=== PATIENT | female | born 1950 | race Caucasian/White ===

== ENCOUNTER → 2016-10-26 | Outpatient (CLI) | payer OTHER ==
[~2016-10-26] MED LIST: BENZ100 PO; BUPR-197 PO; SYNT88TA PO; XARE10TA PO; [UNRECOGNIZED DRUG - CODE] OR
[2016-10-26 10:11] LABS: AUTOMATED NEUTROPHIL # 2.2 TH/MM3 (1.8-7.7); BASOPHIL % 0.7 % (0.0-2.0); EOSINOPHIL # 0.2 TH/MM3 (0-0.4); EOSINOPHIL % 2.9 % (0.0-4.0); HEMATOCRIT 43.4 % (35.0-46.0); HEMO FLAGS DIFF FINAL; LYMPH % 46.4 % (9.0-44.0); LYMPHOCYTE # 2.5 TH/MM3 (1.0-4.8); MEAN CELL VOLUME 91.5 FL (80.0-100.0); MEAN CORPUSCULAR HEMOGLOBIN 31.7 PG (27.0-34.0); MEAN CORPUSCULAR HGB CONC 34.7 % (32.0-36.0); MONO % 9.1 % (0.0-8.0); NEUT % 40.9 % (16.0-70.0); PLATELET COUNT 158 TH/MM3 (150-450); RED BLOOD COUNT 4.75 MIL/MM3 (4.00-5.30); RED CELL DISTRIBUTION WIDTH 14.1 % (11.6-17.2); WHITE BLOOD COUNT 5.3 TH/MM3 (4.0-11.0)
[2016-10-26 11:38] LABS: ALKALINE PHOSPHATASE 81 U/L (45-117); ALT (GPT) 37 U/L (10-53); ANION GAP 6 MEQ/L (5-15); AST (GOT) 19 U/L (15-37); BICARBONATE 26.7 MEQ/L (21.0-32.0); BLOOD UREA NITROGEN 15 MG/DL (7-18); CHLORIDE 107 MEQ/L (98-107); GLOMERULAR FILTRATION RATE 66 ML/MIN (>89); GLUCOSE,FASTING 113 MG/DL (74-99); HDL CHOLESTEROL 35.5 MG/DL (40.0-60.0); LDL CHOLESTEROL 105 MG/DL (0-99); POTASSIUM 4.3 MEQ/L (3.5-5.1); SODIUM (NA) 140 MEQ/L (136-145); TOTAL BILIRUBIN ADULT 0.3 MG/DL (0.2-1.0)
== END ==
LOC: CLAB 09:44
PROVIDERS: ATTEND Family Medicine
DX: E03.9 Hypothyroidism, unspecified (principal); I82.4Z1 Acute embolism and thrombosis of unspecified deep veins of right distal lower extremity; J98.8 Other specified respiratory disorders; K13.79 Other lesions of oral mucosa; M25.559 Pain in unspecified hip; R05 Cough; R53.83 Other fatigue
CPT/HCPCS: 36415; 80053; 80061; 84443; 85025

== ENCOUNTER 2017-08-14 04:39 | Observation (INO) | payer OTHER ==
[2017-08-14] VITALS (7 sets, daily range): BP systolic 125–170; BP diastolic 64–82; PULSE 71–101; RESP 15–18; TEMP 97.8–98.5; O2SAT 95–98
[~2017-08-14] VITALS: Ht 157.5 cm; Wt 77.0 kg
[2017-08-14] MEDS ORDERED: LEVO100T5 PO (05:06)
--- NOTE | 2017-08-14 06:29 | RADRPT ---
EXAM DATE/TIME: 08/14/2017 06:14 [place] COMPARISON: CHEST PA & LAT, February 17, 2013, 15:31. INDICATIONS : Patient vomited blood today, first time ever. MEDICAL HISTORY : None. SURGICAL HISTORY : None. ENCOUNTER: Initial ACUITY: 1 day PAIN SCORE: 0/10 LOCATION: Bilateral chest FINDINGS: A single view of the chest demonstrates the lungs to be symmetrically aerated without evidence of mas s, infiltrate or effusion. The cardiomediastinal contours are unremarkable. Osseous structures are intact. CONCLUSION: 1. No active disease. Kevyn Roberts MD on August 14, 2017 at 6:27 Board Certified Radiologist. This report was verified electronically.
[2017-08-14 07:05] LABS: AUTOMATED NEUTROPHIL # 3.4 TH/MM3 (1.8-7.7); BASOPHIL # 0.1 TH/MM3 (0-0.2); BASOPHIL % 0.9 % (0.0-2.0); EOSINOPHIL # 0.2 TH/MM3 (0-0.4); EOSINOPHIL % 2.2 % (0.0-4.0); HEMOGLOBIN 15.7 GM/DL (11.6-15.3); LYMPH % 38.6 % (9.0-44.0); LYMPHOCYTE # 2.8 TH/MM3 (1.0-4.8); MEAN CELL VOLUME 92.8 FL (80.0-100.0); MEAN CORPUSCULAR HEMOGLOBIN 33.1 PG (27.0-34.0); MEAN CORPUSCULAR HGB CONC 35.7 % (32.0-36.0); MEAN PLATELET VOLUME 9.4 FL (7.0-11.0); MONO % 10.6 % (0.0-8.0); MONOCYTE # 0.8 TH/MM3 (0-0.9); NEUT % 47.7 % (16.0-70.0); PLATELET COUNT 168 TH/MM3 (150-450); RED BLOOD COUNT 4.74 MIL/MM3 (4.00-5.30); RED CELL DISTRIBUTION WIDTH 14.5 % (11.6-17.2); WHITE BLOOD COUNT 7.2 TH/MM3 (4.0-11.0)
[2017-08-14 07:09] LABS: PROTHROMBIN TIME - PATIENT 9.9 SEC (9.8-11.6)
--- NOTE | 2017-08-14 07:16 | PD ---
HPI Chief Complaint: Bleeding Time Seen by Provider: 05:53 Travel History International Travel<30 days: No Contact w/Intl Traveler<30days: No Traveled to known affect area: No History of Present Illness HPI 67-year-old female presents to the emergency department by private transportation for evaluation of vomiting blood 2 this morning. Patient states she is previously in otherwise good health and no history of vomiting blood or coughing up blood. Patient states 2 weeks ago she was diagnosed with influenza virus and her symptoms have resolved. More recently since Wednesday she has developed a congested cough. Patient has not been able to expectorate any sputum and has not noticed any yellow-green sputum white sputum pale sputum or bloody sputum. Patient said no sinus pressure or drainage and no epistaxis. Patient states she awakened this morning and felt mildly nauseated and started coughing and then vomited red blood. Patient states this happened twice. Patient had no black tarry or bloody stools. Patient denies abdominal pain. Patient denies dizziness lightheadedness shortness of breath chest pain near syncope or syncope. Patient occasionally takes Excedrin for headache perhaps once a week but not any more frequently. The patient rates her discomfort 0/10 in intensity. PFSH Past Medical History Narrative Medical Arthritis depression hypothyroidism migraine tubal ligation and breast biopsy; tobacco use; nursing notes reviewed Arthritis: Yes (L HIP) Anxiety: No Depression: Yes Cancer: Yes Cardiovascular Problems: No Chemotherapy: No Diabetes: No Diminished Hearing: No Endocrine: Yes Glaucoma: No Genitourinary: No Hepatitis: No Hiatal Hernia: No Hypertension: No Immune Disorder: No Musculoskeletal: Yes Neurologic: No Psychiatric: Yes Reproductive: No Respiratory: No Radiation Therapy: No Thyroid Disease: Yes Tetanus Vaccination: > 5 Years Influenza Vaccination: Yes ?: Not Menopausal: Yes Tubal Ligation: Yes Past Surgical History Abdominal Surgery: No AICD: No Body Medical Devices: "CLIP" RIGHT BREAST Cardiac Surgery: No Ear Surgery: No Endocrine Surgery: No Eye Surgery: No Genitourinary Surgery: No Gynecologic Surgery: Yes (TUBAL LIGATION) Joint Replacement: No Oral Surgery: Yes (T&A) Pacemaker: No Thoracic Surgery: No Tonsillectomy: Yes Other Surgery: Yes (BREAST BX) Social History Alcohol Use: Yes (rarely) Tobacco Use: Yes (1/2 PPD) Substance Use: No Allergies-Medications (Allergen,Severity, Reaction): Coded Allergies: aspartame (Unverified Allergy, Mild, 08/14/17) diatrizoate meglumine (Unverified Allergy, Mild, HIVES, 08/14/17) gadobenic acid (Unverified Allergy, Mild, HIVES, 08/14/17) gadodiamide (Unverified Allergy, Mild, HIVES, 08/14/17) gadoteridol (Unverified Allergy, Mild, HIVES, 08/14/17) iodixanol (Unverified Allergy, Mild, HIVES, 08/14/17) iohexol (Unverified Allergy, Mild, HIVES, 08/14/17) Uncoded Allergies: ARTIFICIAL SWEETENERS (Adverse Reaction, Intermediate, HEADACHE, 02/28/09) Reported Meds & Prescriptions Reported Meds & Active Scripts Active Reported Levothyroxine (Levothyroxine Sodium) 100 Mcg Tab 100 Mcg PO DAILY Review of Systems Except as stated in HPI: all other systems reviewed are Neg General / Constitutional: No: Fever, Chills HENT: No: Congestion Cardiovascular: No: Chest Pain or Discomfort Respiratory: No: Shortness of Breath Gastrointestinal: Positive: Nausea, Vomiting, Hematemesis, No: Hematochezia Genitourinary: No: Dysuria, Flank Pain Musculoskeletal: No: Myalgias, Arthralgias Skin: No Rash Neurologic: No: Weakness, Dizziness, Syncope, Focal Abnormalities, Coordination Problem Psychiatric: No: Anxiety Hematologic/Lymphatic: No: Lymph Node Enlargement Physical Exam Narrative GENERAL: Well-developed well-nourished female no acute distress or respiratory distress sitting in chair next to the exam stretcher SKIN: Warm and dry. HEAD: Normocephalic. EYES: No scleral icterus. No injection or drainage. ENT: Mucous membranes moist airways patent. NECK: Supple, trachea midline. No JVD or lymphadenopathy. CARDIOVASCULAR: Regular rate and rhythm without murmurs, gallops, or rubs. RESPIRATORY: Breath sounds equal bilaterally. No accessory muscle use. GASTROINTESTINAL: Abdomen soft, non-tender, nondistended. MUSCULOSKELETAL: No cyanosis, or edema. BACK: Nontender without obvious deformity. No CVA tenderness. Data Data Last Documented VS Vital Signs Date Time Temp Pulse Resp B/P (MAP) Pulse Ox O2 Delivery O2 Flow Rate FiO2 08/14/17 07:13 83 16 125/82 (96) 79 15 125/82 (96) 83 16 128/80 (96) 08/14/17 04:41 98.1 95 Room Air Orders Orders Complete Blood Count With Diff (08/14/17 05:53) Act Partial Throm Time (Ptt) (08/14/17 05:53) Prothrombin Time / Inr (Pt) (08/14/17 05:53) Chest, Single Ap (08/14/17 ) Basic Metabolic Panel (Bmp) (08/14/17 05:53) ^ Saline Lock (08/14/17 05:53) Orthostatic Vital Signs (08/14/17 06:39) Labs Laboratory Tests Test 08/14/17 06:41 White Blood Count 7.2 TH/MM3 Red Blood Count 4.74 MIL/MM3 Hemoglobin 15.7 GM/DL Hematocrit 44.0 % Mean Corpuscular Volume 92.8 FL Mean Corpuscular Hemoglobin 33.1 PG Mean Corpuscular Hemoglobin Concent 35.7 % Red Cell Distribution Width 14.5 % Platelet Count 168 TH/MM3 Mean Platelet Volume 9.4 FL Neutrophils (%) (Auto) 47.7 % Lymphocytes (%) (Auto) 38.6 % Monocytes (%) (Auto) 10.6 % Eosinophils (%) (Auto) 2.2 % Basophils (%) (Auto) 0.9 % Neutrophils # (Auto) 3.4 TH/MM3 Lymphocytes # (Auto) 2.8 TH/MM3 Monocytes # (Auto) 0.8 TH/MM3 Eosinophils # (Auto) 0.2 TH/MM3 Basophils # (Auto) 0.1 TH/MM3 CBC Comment DIFF FINAL Differential Comment Prothrombin Time 9.9 SEC Prothromb Time International Ratio 1.0 RATIO Activated Partial Thromboplast Time 23.6 SEC MDM Medical Decision Making Medical Screen Exam Complete: Yes Emergency Medical Condition: Yes Medical Record Reviewed: Yes Differential Diagnosis Hemoptysis hematemesis upper GI bleed bronchitis epistaxis sinusitis anemia Narrative Course IV access obtained specimens collected and sent for resulting imaging study ordered @ 0715 care signed over to Veronica Marquez MD Aug 14, 2017 07:16
[2017-08-14 08:03] LABS: BICARBONATE 26.9 MEQ/L (21.0-32.0); CALCIUM 8.4 MG/DL (8.5-10.1); CREATININE 0.65 MG/DL (0.50-1.00)
--- NOTE | 2017-08-14 08:53 | PD ---
Data Data Last Documented VS Vital Signs Date Time Temp Pulse Resp B/P (MAP) Pulse Ox O2 Delivery O2 Flow Rate FiO2 08/14/17 08:13 75 18 96 Room Air 08/14/17 08:13 130/75 (93) 08/14/17 04:41 98.1 Orders Orders Complete Blood Count With Diff (08/14/17 05:53) Act Partial Throm Time (Ptt) (08/14/17 05:53) Prothrombin Time / Inr (Pt) (08/14/17 05:53) Chest, Single Ap (08/14/17 ) Basic Metabolic Panel (Bmp) (08/14/17 05:53) ^ Saline Lock (08/14/17 05:53) Orthostatic Vital Signs (08/14/17 06:39) Admit Order (Ed Use Only) (08/14/17 ) Labs Laboratory Tests Test 08/14/17 06:41 08/14/17 07:40 White Blood Count 7.2 TH/MM3 Red Blood Count 4.74 MIL/MM3 Hemoglobin 15.7 GM/DL Hematocrit 44.0 % Mean Corpuscular Volume 92.8 FL Mean Corpuscular Hemoglobin 33.1 PG Mean Corpuscular Hemoglobin Concent 35.7 % Red Cell Distribution Width 14.5 % Platelet Count 168 TH/MM3 Mean Platelet Volume 9.4 FL Neutrophils (%) (Auto) 47.7 % Lymphocytes (%) (Auto) 38.6 % Monocytes (%) (Auto) 10.6 % Eosinophils (%) (Auto) 2.2 % Basophils (%) (Auto) 0.9 % Neutrophils # (Auto) 3.4 TH/MM3 Lymphocytes # (Auto) 2.8 TH/MM3 Monocytes # (Auto) 0.8 TH/MM3 Eosinophils # (Auto) 0.2 TH/MM3 Basophils # (Auto) 0.1 TH/MM3 CBC Comment DIFF FINAL Differential Comment Prothrombin Time 9.9 SEC Prothromb Time International Ratio 1.0 RATIO Activated Partial Thromboplast Time 23.6 SEC Blood Urea Nitrogen 15 MG/DL Creatinine 0.65 MG/DL Random Glucose 107 MG/DL Calcium Level 8.4 MG/DL Sodium Level 140 MEQ/L Potassium Level 4.1 MEQ/L Chloride Level 110 MEQ/L Carbon Dioxide Level 26.9 MEQ/L Anion Gap 3 MEQ/L Estimat Glomerular Filtration Rate 90 ML/MIN MDM Supervised Visit with ARIELLE: Yes Narrative Course 67-year-old woman who presents with hematemesis/hemoptysis ongoing since yesterday. Initial workup was unremarkable. She looks well. She has however had 2 more episodes of copious bright red blood per mouth and a combination of coughing and retching. Guaiacs negative. X-ray labs are unremarkable. We will plan on observation given the ongoing bleeding. Diagnosis Primary Impression: Hemoptysis Admitting Information Admitting Physician Requests: Observation Esteban Valadez MD Aug 14, 2017 08:53
--- NOTE | 2017-08-14 08:57 | HHI.HP ---
[facility] Service Family Medicine Primary Care Physician Jeffrey Chin, DO Admission Diagnosis Hematemesis Diagnoses: International Travel<30 Days: No Contact w/Intl Traveler<30days: No Known Affected Area: No History of Present Illness 67 yr old F presents with 1 day hx of hematemesis. She woke up 2:30 am coughing. She has been having coughing on and off since Wednesday. She went to the bathroom, felt nauseous, and started vomiting bright red blood. She states that the amount was the size of her palm. She became very scared and decided to came to the ED. She had another episode of bloody vomiting when in ED around 5: 30-6am. She denies stomach contents in the blood. She denies episodes are due to coughing. She tolerated breakfast well in the ED without N/V. She takes Excedrin occasionally once a week for migraines, though she reports that she has not taken it in the last 3 weeks. She denies hx of GERD. She reports that she had the Flu 3 weeks ago, treated with Tessalon pearls and Mucinex. She denies fevers, abdominal pain, and melena. (Barb Meyers MD R1) History of Present Illness This is a 67-year-old female who presents to the emergency department with what appears to be hemoptysis. She states that she has been coughing for the last 4 days, this has led to posttussive emesis in which she states she has had 2 episodes of bloody emesis. She describes the episodes as being nauseated after coughing, and then having some emesis with bright red blood streaked in it. She states that she feels that it was more than a spoonful of blood. She denies any sputum production or blood-streaked sputum with her coughing. She denies any chest pain or palpitations. She denies any abdominal pain or abdominal burning sensation. She denies any melanotic stools or bright red blood per rectum. (David Loyola MD) Review of Systems Constitutional: DENIES: Fever, Weight loss, Night Sweats Eyes: DENIES: Vision loss Ears, nose, mouth, throat: COMPLAINS OF: Running Nose, DENIES: Throat pain Respiratory: COMPLAINS OF: Cough, DENIES: Shortness of breath Cardiovascular: DENIES: Chest pain Gastrointestinal: COMPLAINS OF: Nausea, Vomiting, DENIES: Abdominal pain, Black stools, Diarrhea Genitourinary: DENIES: Dysuria Musculoskeletal: DENIES: Muscle aches Integumentary: DENIES: Rash Hematologic/lymphatic: DENIES: Lymphadenopathy Neurologic: DENIES: Headache (Barb Meyers MD R1) Other See resident review of systems. I reviewed this with patient and agree with the above (David Loyola MD) Past Family Social History Past Medical History Hypothyroidism Arthritis Past Surgical History L Hip replacement a couple of years ago Growth in left parotid gland removed in 2007 cysts in breasts removed 2002 Tubal ligation 1982 Tonsils removed in 1952 Basal cell carcinoma on nose removed (Barb Meyers MD R1) Allergies: Coded Allergies: aspartame (Unverified Allergy, Mild, 08/14/17) diatrizoate meglumine (Unverified Allergy, Mild, HIVES, 08/14/17) gadobenic acid (Unverified Allergy, Mild, HIVES, 08/14/17) gadodiamide (Unverified Allergy, Mild, HIVES, 08/14/17) gadoteridol (Unverified Allergy, Mild, HIVES, 08/14/17) iodixanol (Unverified Allergy, Mild, HIVES, 08/14/17) iohexol (Unverified Allergy, Mild, HIVES, 08/14/17) Uncoded Allergies: ARTIFICIAL SWEETENERS (Adverse Reaction, Intermediate, HEADACHE, 02/28/09) Family History Mom at 79 of unknown cause Dad at 79 from lung cancer Social History Lives in [facility] with and son, 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 SKIN: No rashes, ecchymoses or lesions. Cool and dry. HEAD: Atraumatic. Normocephalic. No temporal or scalp tenderness. EYES: Pupils equal round and reactive. Extraocular motions intact. No scleral icterus. No injection or drainage. ENT: Nose without bleeding, purulent drainage or septal hematoma. Throat without erythema, tonsillar hypertrophy or exudate. Uvula midline. Airway patent. NECK: Trachea midline. No JVD or lymphadenopathy. Supple, nontender, no meningeal signs. CARDIOVASCULAR: Regular rate and rhythm without murmurs, gallops, or rubs. RESPIRATORY: Clear to auscultation. Breath sounds equal bilaterally. No wheezes , rales, or rhonchi. GASTROINTESTINAL: Abdomen soft, non-tender, nondistended. No hepato-splenomegaly , or palpable masses. No guarding. MUSCULOSKELETAL: Extremities without clubbing, cyanosis, or edema. No joint tenderness, effusion, or edema noted. No calf tenderness. Negative Homans sign bilaterally. NEUROLOGICAL: Awake and alert. Cranial nerves II through XII intact. Motor and sensory grossly within normal limits. Five out of 5 muscle strength in all muscle groups. Normal speech. Laboratory Laboratory Tests Test 08/14/17 06:41 08/14/17 07:40 White Blood Count 7.2 Red Blood Count 4.74 Hemoglobin 15.7 Hematocrit 44.0 Mean Corpuscular Volume 92.8 Mean Corpuscular Hemoglobin 33.1 Mean Corpuscular Hemoglobin Concent 35.7 Red Cell Distribution Width 14.5 Platelet Count 168 Mean Platelet Volume 9.4 Neutrophils (%) (Auto) 47.7 Lymphocytes (%) (Auto) 38.6 Monocytes (%) (Auto) 10.6 Eosinophils (%) (Auto) 2.2 Basophils (%) (Auto) 0.9 Neutrophils # (Auto) 3.4 Lymphocytes # (Auto) 2.8 Monocytes # (Auto) 0.8 Eosinophils # (Auto) 0.2 Basophils # (Auto) 0.1 CBC Comment DIFF FINAL Differential Comment Prothrombin Time 9.9 Prothromb Time International Ratio 1.0 Activated Partial Thromboplast Time 23.6 Blood Urea Nitrogen 15 Creatinine 0.65 Random Glucose 107 Calcium Level 8.4 Sodium Level 140 Potassium Level 4.1 Chloride Level 110 Carbon Dioxide Level 26.9 Anion Gap 3 Estimat Glomerular Filtration Rate 90 (Barb Meyers MD R1) Physical Exam GENERAL: Healthy-appearing female, sitting up in bed in no obvious distress. SKIN: Normal skin turgor without evidence of dehydration such as tenting CARDIOVASCULAR: Regular rate and rhythm without murmurs, gallops, or rubs. RESPIRATORY: Good air movement without labored breathing. Scattered expiratory wheezes. GASTROINTESTINAL: Abdomen soft, non-tender, nondistended. No hepato-splenomegaly , or palpable masses. No guarding. MUSCULOSKELETAL: Extremities without clubbing, cyanosis, or edema. NEUROLOGICAL: Awake and alert. Normal speech. (David Loyola MD) Result Diagram: 08/14/17 0641 08/14/17 0740 Imaging Last Impressions Chest X-Ray 08/14/17 0000 Signed Impressions: Service Date/Time: Monday, August 14, 2017 06:14 - CONCLUSION: 1. No active disease. Kevyn Roberts MD (Barb Meyers MD R1) Caprini VTE Risk Assessment Caprini VTE Risk Assessment: Mod/High Risk (score >= 2) Caprini Risk Assessment Model Point Value = 1 Point Value = 2 Point Value = 3 Point Value = 5 Age 41-60 Minor surgery BMI > 25 kg/m2 Swollen legs Varicose veins or History of unexplained or recurrent spontaneous Oral contraceptives or hormone replacement Sepsis (< 1 month) Serious lung disease, including pneumonia (< 1 month) Abnormal pulmonary function Acute myocardial infarction Congestive heart failure (< 1 month) History of inflammatory bowel disease Medical patient at bed rest Age 61-74 Arthroscopic surgery Major open surgery (> 45 min) Laparoscopic surgery (> 45 min) Malignancy Confined to bed (> 72 hours) Immobilizing plaster cast Central venous access Age >= 75 History of VTE Family history of VTE Factor V Leiden Prothrombin [id number] Lupus anticoagulant Anticardiolipin antibodies Elevated serum homocysteine Heparin-induced thrombocytopenia Other congenital or acquired thrombophilia Stroke (< 1 month) Elective arthroplasty Hip, pelvis, or leg fracture Acute spinal cord injury (< 1 month) Prophylaxis Regimen Total Risk Factor Score Risk Level Prophylaxis Regimen 0-1 Low Early ambulation 2 Moderate Order ONE of the following: *Sequential Compression Device (SCD) *Heparin 5000 units SQ BID 3-4 Higher Order ONE of the following medications: *Heparin 5000 units SQ TID *Enoxaparin/Lovenox 40 mg SQ daily (WT < 150 kg, CrCl > 30 mL/min) *Enoxaparin/Lovenox 30 mg SQ daily (WT < 150 kg, CrCl > 10-29 mL/min) *Enoxaparin/Lovenox 30 mg SQ BID (WT < 150 kg, CrCl > 30 mL/min) AND/OR *Sequential Compression Device (SCD) 5 or more Highest Order ONE of the following medications: *Heparin 5000 units SQ TID (Preferred with Epidurals) *Enoxaparin/Lovenox 40 mg SQ daily (WT < 150 kg, CrCl > 30 mL/min) *Enoxaparin/Lovenox 30 mg SQ daily (WT < 150 kg, CrCl > 10-29 mL/min) *Enoxaparin/Lovenox 30 mg SQ BID (WT < 150 kg, CrCl > 30 mL/min) AND *Sequential Compression Device (SCD) (Barb Meyers MD R1) Assessment and Plan Assessment and Plan 67 yr old presents with hematemesis, suspected upper GI bleed. Code Status DNI Discussed Condition With Dr. Bolaños (Barb Meyers MD R1) Problem List: (1) Hematemesis ICD Codes: K92.0 - Hematemesis Plan: 1 day hx of hematemesis and hx of chronic Excedrin use. Suspected upper GI bleed H/H stable, continue to trend H & H q8h Hemoccult negative, performed by nurse in ED NPO, MIVFS Protonix 40mg IV BID Ondansetron 4mg IV PRN for N/V GI consulted, appreciate recs (2) Hypothyroid ICD Codes: E03.9 - Hypothyroidism, unspecified Plan: Continue Levothyroxine 100mcg PO daily (3) Nutrition, metabolism, and development symptoms ICD Codes: R63.8 - Other symptoms and signs concerning food and fluid intake Plan: Diet:NPO Fluids: NS 117mls/hr vitals q4h, monitor I & Os DVT ppx: SCDs (Barb Meyers MD R1) Problem List: (1) Hematemesis ICD Codes: K92.0 - Hematemesis Plan: Posttussive emesis with bright red blood involvement -Suspect likely Savannah-Mcnamara tear versus gastritis Hemoglobin on arrival 15.7, repeat hemoglobin 14.6 - continue to trend H & H q8h Hemoccult negative, performed by nurse in ED NPO, MIVFS Protonix 40mg IV BID Ondansetron 4mg IV PRN for N/V GI consulted to evaluate for possible EGD as inpatient versus outpatient (2) Hypothyroid ICD Codes: E03.9 - Hypothyroidism, unspecified Plan: Continue Levothyroxine 100mcg PO daily (3) Nutrition, metabolism, and development symptoms ICD Codes: R63.8 - Other symptoms and signs concerning food and fluid intake Plan: Diet:NPO Fluids: NS 117mls/hr vitals q4h, monitor I & Os DVT ppx: SCDs (David Loyola MD) Barb Meyers MD R1 Aug 14, 2017 08:57 David Loyola MD Aug 14, 2017 13:48
[2017-08-14] MEDS ORDERED: SODIUM CHLORIDE 0.9% FLUSH 10 ML FLUSH IV FLUSH SCH (09:00)
[2017-08-14] MEDS ORDERED: SODIUM CHLORIDE 0.9% FLUSH 10 ML FLUSH IV FLUSH PRN ×2 (09:00→10:30)
[2017-08-14] MEDS ORDERED: ONDANSETRON HCL 4 MG/2 ML VIAL IV PUSH PRN (10:30)
[2017-08-14] MEDS: SODIUM CHLORIDE 0.9% FLUSH 10 ML FLUSH IV FLUSH SCH ×2 (11:00→20:52)
[2017-08-14] MEDS: LEVOTHYROXINE SODIUM 100 MCG TAB PO SCH (11:50)
[2017-08-14] MEDS: PANTOPRAZOLE SODIUM 40 MG VIAL IV PUSH SCH ×2 (11:50→21:04)
[2017-08-14] MEDS: SODIUM CHLOR 0.9% 1000 ML INJ 1,000 ML IV SCH ×2 (11:50→19:31)
[2017-08-14 12:23] LABS: HEMATOCRIT 41.8 % (35.0-46.0); HEMOGLOBIN 14.6 GM/DL (11.6-15.3)
[2017-08-14 19:44] LABS: HEMATOCRIT 40.7 % (35.0-46.0)
[2017-08-15 03:46] VITALS: BP 131/76; PULSE 78; RESP 18; TEMP 98; O2SAT 94
[2017-08-15 04:03] LABS: AUTOMATED NEUTROPHIL # 2.9 TH/MM3 (1.8-7.7); BASOPHIL % 0.6 % (0.0-2.0); EOSINOPHIL # 0.2 TH/MM3 (0-0.4); EOSINOPHIL % 2.7 % (0.0-4.0); HEMATOCRIT 39.3 % (35.0-46.0); HEMOGLOBIN 13.6 GM/DL (11.6-15.3); LYMPH % 35.8 % (9.0-44.0); MEAN CELL VOLUME 92.8 FL (80.0-100.0); MEAN CORPUSCULAR HEMOGLOBIN 32.1 PG (27.0-34.0); MEAN CORPUSCULAR HGB CONC 34.6 % (32.0-36.0); MONO % 9.9 % (0.0-8.0); MONOCYTE # 0.6 TH/MM3 (0-0.9); PLATELET COUNT 129 TH/MM3 (150-450); RED BLOOD COUNT 4.24 MIL/MM3 (4.00-5.30); RED CELL DISTRIBUTION WIDTH 13.9 % (11.6-17.2); WHITE BLOOD COUNT 5.6 TH/MM3 (4.0-11.0)
[2017-08-15 05:24] LABS: ALBUMIN 3.1 GM/DL (3.4-5.0); ALKALINE PHOSPHATASE 69 U/L (45-117); ALT (GPT) 32 U/L (10-53); AST (GOT) 13 U/L (15-37); BICARBONATE 24.5 MEQ/L (21.0-32.0); BLOOD UREA NITROGEN 12 MG/DL (7-18); CALCIUM 7.6 MG/DL (8.5-10.1); CHLORIDE 112 MEQ/L (98-107); CREATININE 0.62 MG/DL (0.50-1.00); GLOMERULAR FILTRATION RATE 95 ML/MIN (>89); GLUCOSE,RANDOM 100 MG/DL (74-106); SODIUM (NA) 143 MEQ/L (136-145); TOTAL BILIRUBIN ADULT 0.5 MG/DL (0.2-1.0); TOTAL PROTEIN 6.3 GM/DL (6.4-8.2)
[2017-08-15] MEDS: LEVOTHYROXINE SODIUM 100 MCG TAB PO SCH (05:36)
[2017-08-15] MEDS: SODIUM CHLOR 0.9% 1000 ML INJ 1,000 ML IV SCH (05:37)
[2017-08-15 07:04] VITALS: BP 130/81; PULSE 77; RESP 18; TEMP 97.6; O2SAT 95
[2017-08-15] MEDS: PANTOPRAZOLE SODIUM 40 MG VIAL IV PUSH SCH (09:29)
[2017-08-15] MEDS: SODIUM CHLORIDE 0.9% FLUSH 10 ML FLUSH IV FLUSH SCH (09:29)
[2017-08-15] MEDS ORDERED: ZOFR4TAB3 SL (09:36)
[2017-08-15] MEDS ORDERED: PROT40TA PO (09:36)
--- NOTE | 2017-08-15 09:36 | HHI.DCPOC ---
Discharge Care Plan Diagnosis: (1) Hematemesis (2) Hypothyroid Goals to Promote Your Health * To prevent worsening of your condition and complications * To maintain your health at the optimal level Directions to Meet Your Goals Take your medications as prescribed Follow your dietary instruction Follow activity as directed Keep your appointments as scheduled Take your immunizations and boosters as scheduled If your symptoms worsen call your PCP, if no PCP go to Urgent Care Center or Emergency Room Smoking is Dangerous to Your Health. Avoid second hand smoke Call the 24-hour hour crisis hotline for domestic abuse at Freddie Bolaños MD R2 Aug 15, 2017 09:36
--- NOTE | 2017-08-15 11:40 | HHI.FPPN ---
Subjective Remarks No acute issues overnight. Vitals are stable, patient remains afebrile. She denies any abdominal pain, chest pain, shortness of breath, fever, chills, nausea or vomiting. Significantly improved since yesterday. She feels ready to go home today. (Janette Thomas MD, R3) Objective Vitals Vital Signs Date Time Temp Pulse Resp B/P (MAP) Pulse Ox O2 Delivery O2 Flow Rate FiO2 08/15/17 07:04 97.6 77 18 130/81 (97) 95 08/15/17 03:46 98.0 78 18 131/76 (94) 94 08/14/17 21:39 96 21 08/14/17 19:29 98.2 71 16 135/72 (93) 96 08/14/17 15:15 97.8 78 16 128/64 (85) 96 (Janette Thomas MD, R3) Result Diagram: 08/15/17 0331 08/15/17 0331 Imaging Last Impressions Chest X-Ray 08/14/17 0000 Signed Impressions: Service Date/Time: Monday, August 14, 2017 06:14 - CONCLUSION: 1. No active disease. Kevyn Roberts MD Objective Remarks GENERAL: Well-nourished, well-developed female patient in no acute distress. SKIN: Warm and dry. No rashes or lesions present. EYES: No scleral icterus. No conjunctival injection or drainage. Pupils equal, round, reactive to light and accommodation. Extraocular movements intact. THROAT: Moist mucous membranes. NECK: Supple, trachea midline. CARDIOVASCULAR: Regular rate and rhythm without murmurs, gallops, or rubs. Strong radial and pedal pulses. CHEST: Symmetric chest expansion with respiration. RESPIRATORY: Breath sounds clear to auscultation bilaterally. No accessory muscle use. No wheezes, rhonchi or rales. GASTROINTESTINAL: Abdomen soft, non-tender, nondistended. No masses or hernias. No hepatosplenomegaly. Bowel sounds present. MUSCULOSKELETAL: No cyanosis or edema. No nail changes. NEURO: Cranial nerves II through XII grossly intact. Good muscle tone. Normal gait and coordination. PSYCH: Normal mood and affect. Good eye contact. Good insight and judgment. Normal speech. (Janette Thomas MD, R3) A/P Assessment and Plan 67-year-old female who presented with hematemesis and was admitted for suspected upper GI bleed. Discharge Planning Anticipate discharge home today. (Janette Thomas MD, R3) Problem List: (1) Hematemesis ICD Codes: K92.0 - Hematemesis Status: Acute Plan: Posttussive emesis with bright red blood involvement -Suspect likely Savannah-Mcnamara tear versus gastritis Hemoglobin on arrival 15.7, repeat hemoglobin 14.6-14.0-13.6 H/H Stable overnight Hemoccult negative, performed by nurse in ED s/p Protonix 40mg IV BID. Will discharge home on Protonix 40mg PO daily and Zofran PRN nausea. GI referral as outpatient (2) Hypothyroid ICD Codes: E03.9 - Hypothyroidism, unspecified Status: Chronic Plan: Continue Levothyroxine 100mcg PO daily (3) Nutrition, metabolism, and development symptoms ICD Codes: R63.8 - Other symptoms and signs concerning food and fluid intake Plan: Diet: Regular diet as tolerated Fluids: DC IV fluids vitals q4h, monitor I & Os DVT ppx: SCDs (Janette Thomas MD, R3) Problem Qualifiers (1) Hematemesis: Qualified Codes: K92.0 - Hematemesis (2) Hypothyroid: Qualified Codes: E03.9 - Hypothyroidism, unspecified Janette Thomas MD, R3 Aug 15, 2017 11:40 David Loyola MD Aug 15, 2017 21:11
== END 2017-08-15 11:13 | disposition home or self-care (01) ==
LOC: NEPC 04:39 → NEDA 08:40 → NEPFCDU 09:48
PROVIDERS: ADMIT Family Medicine; ATTEND Family Medicine
DX: K92.0 Hematemesis (principal); E03.9 Hypothyroidism, unspecified; G43.909 Migraine, unspecified, not intractable, without status migrainosus; Z72.0 Tobacco use; Z85.828 Personal history of other malignant neoplasm of skin; Z96.642 Presence of left artificial hip joint
CPT/HCPCS: 71045; 80048; 80053; 85014; 85018; 85025; 85610; 85730; 96361; 96374; 96376; 99285; C9113; G0378; J7030

== ENCOUNTER → 2017-08-26 | Outpatient (CLI) | payer OTHER ==
[~2017-08-26] VITALS: Ht 157.5 cm; Wt 78.5 kg
[~2017-08-26] MED LIST changes: -BENZ100 PO; -BUPR-197 PO; +CHLORHEXIDINE GLUCONATE 2 % 1 PACK (2 CLOTHS) TOPICAL PRN; +LACTATED RINGER'S 1000 ML IV PRN; +LEVO100T5 PO; +LIDOCAINE HCL 1% PF 5 ML SYRINGE OTHER ONE; +METOPROLOL TARTRATE 25 MG TAB PO PRN; +POVIDONE IODINE 5% (ANTISEPSIS KIT) 4 APPLICATIONS EACH NARE PRN; +PROPOFOL 200 MG/20 ML AMP IV ONE; +SODIUM CHLORID 0.9% 500 ML IV PRN; -SYNT88TA PO; -XARE10TA PO; -[UNRECOGNIZED DRUG - CODE] OR
[2017-08-26 17:00] VITALS: BP 166/94; PULSE 68; RESP 18; TEMP 97.4; O2SAT 99
--- NOTE | 2017-08-27 14:45 | EKG ---
Date Performed: 08/26/2017 Time Performed: 13:26:33 PTAGE: 67 years EKG: Sinus rhythm POSSIBLE RIGHT VENTRICULAR CONDUCTION DELAY BORDERLINE ECG PREVIOUS TRACING : 02/17/2013 14.36 Since the prior tracing, there has been no significant shannon DOCTOR: Jenifer Young Interpretating Date/Time 08/27/2017 14:39:55
--- NOTE | 2017-08-29 11:31 | MR ---
cc: SUNG BERNARDO M.D. DATE: 08/26/2017 DATE OF 01/08/1942 INDICATIONS FOR PROCEDURE: 1. Rule out upper GI bleeding source. The patient has possible hematemesis recently. 2. Screening colonoscopy for average risk. Photographs taken. PREMEDICATION Administered by anesthesiology. Monitoring was accomplished by pulse oximeter, EKG, blood pressure monitor. PROCEDURE NOTE: After informed consent was obtained, the procedure, risks and benefits were explained including risks of bleeding, sepsis, perforation and the risks of anesthesia. The patient was placed in the left lateral position. The video endoscope was inserted into the esophagus under direct visualization. The esophagus was carefully inspected except for very minimal esophagitis at the EG junction, the esophagus was unremarkable. The stomach was entered. The gastric mucosa was visualized. The gastric mucosa appeared to be grossly normal throughout and the retroflex view of the cardiac and fundus was completely normal. There was no evidence of bleeding. The pylorus was patent. In the duodenal bulb in the post bulbar area, there was moderate duodenitis noted with erythematous folds. The second and third portion of the duodenum were unremarkable. Antral biopsies were taken to rule out H pylori. Upon further inspection there was slight mild gastritis noted as well in the distal antrum. Once again biopsies were taken. The scope was gradually withdrawn. The patient tolerated this well. There was no active bleeding noted. The patient was then repositioned and the colonoscope was inserted in the rectum. The scope was advanced gradually to the ileocecal region. The mucosa throughout appeared to be grossly normal. At the ileocecal valve there was a 5 mm polyp found. This was biopsied off and removed. It was somewhat difficult to enter the cecum. Using the biopsy forceps some of the cecum was pulled towards the scope for better visualization. I could not appreciate any obvious masses or polyps in the cecum. The patient was also repositioned to attempt to intubate the cecum better. Once again I could not appreciate any obvious abnormalities here. The scope was then gradually withdrawn. The colonic mucosa appeared to be grossly normal throughout without inflammatory change or bleeding sources. In the rectum there was grade 1 junctional hemorrhoids noted, but these were not bleeding. The patient tolerated procedure well. She was brought to the Recovery Room in stable condition. IMPRESSION The upper endoscopy examination failed to reveal any active bleeding source for the cause of hematemesis. She did have some mild esophagitis, very mild gastritis and moderate duodenitis. Biopsies in the antrum were taken. The patient's colonoscopy exam was relatively benign. It was difficult to intubate the cecum. We did not appreciate any obvious masses. One small polyp was removed from the ileocecal valve by biopsy polypectomy technique. PLAN: Would recommend PPI therapy, antireflux maneuvers, follow up biopsies taken today. Will discuss with the patient and her . Will follow up clinically as an outpatient as well. MD LADAN Alaniz/STUART /4:27 PM /11:05 AM
== END ==
LOC: HEND 12:45
PROVIDERS: ATTEND Internal Medicine Gastroenterology
DX: Z12.11 Encounter for screening for malignant neoplasm of colon (principal); D12.0 Benign neoplasm of cecum; K29.80 Duodenitis without bleeding; K29.70 Gastritis, unspecified, without bleeding; K64.0 First degree hemorrhoids; K20.9 Esophagitis, unspecified; R94.31 Abnormal electrocardiogram [ECG] [EKG]
CPT/HCPCS: 00813; 43239; 45380; 88305; 88312; 93005; J7120